=== PATIENT | female | born 1975 | race African-American/Black ===

== ENCOUNTER 2025-07-30 11:04 | Emergency (ER) | payer OTHER, SELFPAY ==
[2025-07-30 11:18] VITALS: BP 144/60; PULSE 96; RESP 14; TEMP 36.1; O2SAT 99; BMI 28.1
--- NOTE | 2025-07-30 11:41 | ED.HA ---
HPI - Headache <Rod Orourke PA-C - Last Filed: 07/30/25 14:15> General Chief Complaint: Headache Stated Complaint[place] Time Seen by Provider: 07/30/25 11:40 Mode of arrival: Ambulatory History of Present Illness HPI Narrative: This is a 50-year-old female presenting to the emergency department due to a week history of myalgias as well as nausea. She reports as of 3 days ago she had a severe headache that woke her up from sleep. Also has a history of vertigo. Denies any chest pain, shortness of breath, abdominal pain. States she was ?felt hot? but denies any recorded fevers. PCP saw her in his requesting a CT scan of the head due to the headache. Related Data Allergies Allergy/AdvReac Type Severity Reaction Status Date / Time Penicillins Allergy Unknown Verified 07/30/25 11:18 Sulfa (Sulfonamide Allergy Unknown Verified 07/30/25 11:18 Antibiotics) Review of Systems <NOREEN Morrow Last Filed: 07/30/25 14:15> Review of Systems Narrative: GENERAL: Denies chills, fatigue, malaise, fever, sweats. HEENT: Reports headache Denies sinus pain, ear pain, sore throat, difficulty swallowing, dizziness. RESPIRATORY: Denies dyspnea, cough, wheezing, hemoptysis, sputum. CARDIOVASCULAR: Denies chest pain, palpitations, orthopnea, edema, GASTROINTESTINAL: Reports nausea, denies vomiting, abdominal pain, diarrhea, constipation, melena. : Denies dysuria, frequency, incontinence, hematuria, urinary retention. MUSCULOSKELETAL: denies weakness, joint pain, or bony pain SKIN: Denies rash, skin lesions, or other NEUROLOGIC: Denies weakness, headache, numbness, change in speech, confusion, seizures, incoordination. PSYCHIATRIC: No concerning psychosocial issues. 12 point review of systems is negative except for those stated above Patient History <NOREEN Morrow Last Filed: 07/30/25 14:15> Social History Smoking Status: Unknown if ever smoked Smoking Status: Unknown if ever smoked Exam <NOREEN Morrow Last Filed: 07/30/25 14:15> Narrative Exam Narrative: GENERAL: Well-developed patient, in mild distress. HEAD: Atraumatic. Normocephalic. EYES: Pupils equal round and reactive. Extraocular motions intact. No scleral icterus. No injection or drainage. ENT: Nose without bleeding, purulent drainage. Throat without erythema, tonsillar hypertrophy or exudate. Airway patent. NECK: Trachea midline. Non tender EXTREMITIES: No edema or joint tenderness. NEURO: AOx3. Cranial nerves 2-12 intact SKIN: No rash or erythema of visible areas Initial Vital Signs Initial Vital Signs: Vital Signs Temperature 97.0 F L 07/30/25 11:18 Pulse Rate 96 H 07/30/25 11:18 Respiratory Rate 14 07/30/25 11:18 Blood Pressure 144/60 H 07/30/25 11:18 Pulse Oximetry 99 07/30/25 11:18 Oxygen Delivery Method Room Air 07/30/25 11:18 <Zhao Chandra MD - Last Filed: 07/30/25 15:02> Initial Vital Signs Initial Vital Signs: Vital Signs Temperature 97.0 F L 07/30/25 11:18 Pulse Rate 96 H 07/30/25 11:18 Respiratory Rate 14 07/30/25 11:18 Blood Pressure 144/60 H 07/30/25 11:18 Pulse Oximetry 99 07/30/25 11:18 Oxygen Delivery Method Room Air 07/30/25 11:18 Course <Rod Orourke PA-C - Last Filed: 07/30/25 14:15> Orders Ordered: ED Orders 07/30/25 11:51 CT head/brain wo con Stat 07/30/25 11:52 Covid-19 + FLU A/B + RSV - PCR Stat 07/30/25 12:50 CXR [XR chest 2V] Stat EKG-12 Lead Stat 07/30/25 12:59 Trop I [Troponin I] Stat Vital Signs Vital signs: Vital Signs - 8 hr 07/30/25 11:18 07/30/25 12:46 Temperature 97.0 F L 98 F Pulse Rate 96 H 96 H Respiratory Rate 14 12 Blood Pressure 144/60 H 129/58 L Pulse Oximetry 99 97 Oxygen Delivery Method Room Air Room Air <Zhao Chandra MD - Last Filed: 07/30/25 15:02> Orders Ordered: ED Orders 07/30/25 11:51 CT head/brain wo con Stat 07/30/25 11:52 Covid-19 + FLU A/B + RSV - PCR Stat 07/30/25 12:50 CXR [XR chest 2V] Stat EKG-12 Lead Stat 07/30/25 12:59 Trop I [Troponin I] Stat Vital Signs Vital signs: Vital Signs - 8 hr 07/30/25 11:18 07/30/25 12:46 Temperature 97.0 F L 98 F Pulse Rate 96 H 96 H Respiratory Rate 14 12 Blood Pressure 144/60 H 129/58 L Pulse Oximetry 99 97 Oxygen Delivery Method Room Air Room Air MDM - Headache <Rod Orourke PA-C - Last Filed: 07/30/25 14:15> Lab Data Labs: Lab Results 07/30/25 07/30/25 Range/Units 11:52 12:59 Troponin I < 0.012 (0.01-0.034) ng/mL SARS-CoV-2 (PCR) Negative (Negative) Influenza A (RT-PCR) Flu a negative (NEGATIVE) Influenza B (RT-PCR) Flu b negative (NEGATIVE) RSV (PCR) Negative (Negative) Imaging Data Chest x-ray: Radiologist's Impression: [address] [address] XRay Report Signed Patient: Charo Ford MR#: [id number] : 1975 Acct:[id number] Age/Sex: 50 / F Date of Service: 07/30/25 Loc: Accession Number: [id number] Procedure: XR chest 2V Ordering Provider: Rod Orourke PA-C PROCEDURE: XR CHEST 2V INDICATIONS: CP TECHNIQUE: 2 views of the chest were acquired. COMPARISON: None. FINDINGS: Surgical changes and devices: None. Lungs and pleura: Lungs are clear. No pleural effusions or pneumothorax. Mediastinum: Mediastinal contours are normal. Heart size is normal. Bones and chest wall: No suspicious bony abnormalities. Soft tissues appear unremarkable. IMPRESSION: No acute cardiopulmonary abnormality is seen. Dictated by: Bin Sepulveda M.D. on 07/30/2025 at 13:10 Approved by: Bin Sepulveda M.D. on 07/30/2025 at 13:10 CT scan - head: Radiologist's Impression: [address] [address] [address] Scan Report Signed Patient: Charo Ford MR#: [id number] : 1975 Acct:[id number] Age/Sex: 50 / F Date of Service: 07/30/25 Loc: ED Accession Number: [id number] Procedure: CT head/brain wo con Ordering Provider: Rod Orourke PA-C PROCEDURE: CT HEAD/BRAIN WO CON INDICATIONS: Severe GALLEGOS TECHNIQUE: Noncontrast 4.5 mm thick angled axial sections acquired from the foramen magnum to the vertex, with coronal and sagittal reformats. For radiation dose reduction, the following was used: automated exposure control, adjustment of mA and/or kV according to patient size. COMPARISON: None. FINDINGS: Image quality: Diagnostic. CSF spaces: Basal cisterns are patent. No extra-axial fluid collections. Ventricles are normal in size and shape. Brain: No midline shift. No intracranial mass effect or hemorrhage. Forrest-white matter interface is normal. Skull and face: Calvarium and visualized facial bones are intact, without suspicious lesions. Sinuses: Visualized sinuses and mastoids are clear. IMPRESSION: No acute intracranial pathology. Dictated by: Bin Sepulveda M.D. on 07/30/2025 at 12:06 Approved by: Bin Sepulveda M.D. on 07/30/2025 at 12:11 ECG Data Interpretation: 1321: EKG shows normal sinus rhythm at 90 beats per minute. No ST elevation or T-wave abnormalities MDM Narrative Medical decision making narrative: ED course: This is a 50-year-old female presenting to the emergency department due suspected viral URI. Patient was PCP requested a CT scan of the head due to headache which was negative. Cardiac workup ordered due to possible atypical presentation of STEMI/NSTEMI but it was negative. COVID flu RSV negative. Recommended supportive care. CC: Myalgias, headache Complicating co-morbidities: Hyperlipidemia Data collected from: Previous notes Medical records reviewed: Patient has no records available to review. Differential considered, but not limited to: Intracranial hemorrhage, ACS, viral URI Exam documented above, pertinent findings include: Cranial nerves 2-12 intact Lab Test results independently reviewed as above. Pertinent findings: Troponin within normal limits Imaging studies independently reviewed: CT head and chest x-ray unremarkable Scores Used: None MIPS Elements: None Consultations: None Treatments: None Re-evaluations: None Discussion: Discussed plan with the patient was comfortable with the plan Diagnosis: Viral illness Disposition: see below, along with detailed discharge instructions that have been reviewed with patient as well as indications for ED re-evaluation and additional outpatient follow up <Zhao Chandra MD - Last Filed: 07/30/25 15:02> Lab Data Labs: Lab Results 07/30/25 07/30/25 Range/Units 11:52 12:59 Troponin I < 0.012 (0.01-0.034) ng/mL SARS-CoV-2 (PCR) Negative (Negative) Influenza A (RT-PCR) Flu a negative (NEGATIVE) Influenza B (RT-PCR) Flu b negative (NEGATIVE) RSV (PCR) Negative (Negative) Discharge Plan Departure Patient Disposition: Home Clinical Impression: Viral illness Activity Restrictions/Additional Instructions: Thank you for coming to the [facility] Emergency Department today. As we discussed your workup today was very reassuring. The CT head no showed no evidence of a ?brain bleed?. The cardiac workup showed no evidence of a heart attack. I suspect you are experiencing a viral illness which should improve over the next were work week or so with plenty of rest and fluids. Please return to the emergency department if you develop any slurred speech, weakness, chest pain, or any other concerning signs or symptoms. I hope you feel better soon. Please follow up with your primary care provider within a week if your symptoms continue. If you do not have a primary care provider please contact the [facility] Resource line at [phone]. They will ask some questions about your medical history and help you get set up with a provider in the community. Referrals: ProviderHussain [Primary Care Provider, Family Practice] Stand Alone Forms: Patient Portal/API, Work Release Note ED Sign-out <Zhao Chandra MD - Last Filed: 07/30/25 15:02> Cosign ED Attending Cosignature Attestation: I was immediately available in the department for consultation. ?This documentation has been reviewed and I agree with assessment and plan. Supervised by Zhao Chandra MD
--- NOTE | 2025-07-30 11:51 | DI.CT.S_ITS ---
PROCEDURE: CT HEAD/BRAIN WO CON INDICATIONS: Severe GALLEGOS TECHNIQUE: Noncontrast 4.5 mm thick angled axial sections acquired from the foramen magnum to the vertex, with coronal and sagittal reformats. For radiation dose reduction, the following was used: automated exposure control, adjustment of mA and/or kV according to patient size. COMPARISON: None. FINDINGS: Image quality: Diagnostic. CSF spaces: Basal cisterns are patent. No extra-axial fluid collections. Ventricles are normal in size and shape. Brain: No midline shift. No intracranial mass effect or hemorrhage. Forrest- white matter interface is normal. Skull and face: Calvarium and visualized facial bones are intact, without suspicious lesions. Sinuses: Visualized sinuses and mastoids are clear. IMPRESSION: No acute intracranial pathology. Dictated by: Bin Sepulveda M.D. on 07/30/2025 at 12:06 Approved by: Bin Sepulveda M.D. on 07/30/2025 at 12:11
[2025-07-30 12:38] LABS: COVID-19 CEPHEID 4-PLEX PCR Negative (Negative); Influenza A - CEPHEID Flu A NEGATIVE (NEGATIVE); Influenza B - CEPHEID Flu B NEGATIVE (NEGATIVE)
[2025-07-30 12:46] VITALS: BP 129/58; PULSE 96; RESP 12; TEMP 36.6; O2SAT 97
--- NOTE | 2025-07-30 12:50 | DI.RAD.S_ITS ---
PROCEDURE: XR CHEST 2V INDICATIONS: CP TECHNIQUE: 2 views of the chest were acquired. COMPARISON: None. FINDINGS: Surgical changes and devices: None. Lungs and pleura: Lungs are clear. No pleural effusions or pneumothorax. Mediastinum: Mediastinal contours are normal. Heart size is normal. Bones and chest wall: No suspicious bony abnormalities. Soft tissues appear unremarkable. IMPRESSION: No acute cardiopulmonary abnormality is seen. Dictated by: Bin Sepulveda M.D. on 07/30/2025 at 13:10 Approved by: Bin Sepulveda M.D. on 07/30/2025 at 13:10
--- NOTE | 2025-07-30 13:21 | EKG_ITS ---
[facility] [address] [place] [address] Test Date: 2025-07-30 Pat Name: Charo Ford Department: [facility] Room: Gender: Female [employer]: : 1975 Requested By: Order Number: [id number] Reading MD: Rod Yates MD Measurements Intervals [place] Rate: 90 P: 59 GA: 160 QRS: 53 QRSD: 90 T: 38 QT: 384 QTc: 469 Interpretive Statements Normal sinus rhythm Electronically Signed On 08-09-2025 9:00:27 PST by Rod Yates MD
[2025-07-30 13:41] LABS: Troponin I < 0.012 ng/mL (0.01-0.034)
== END 2025-07-30 14:22 | disposition home or self-care (01) ==
PROVIDERS: Emergency Provider Physician Assistant Medical
DX: B34.9 Viral infection, unspecified (principal); R07.9 Chest pain, unspecified; R51.9 Headache, unspecified
CPT/HCPCS: 36415; 70450; 71046; 84484; 87637; 93005; 93010; 99284

== ENCOUNTER 2025-08-14 14:33 | Emergency (ER) | payer OTHER, SELFPAY ==
[2025-08-14] VITALS (9 sets, daily range): BP systolic 121–150; BP diastolic 55–98; PULSE 59–99; RESP 18–24; TEMP 36.8–36.9; O2SAT 95–98; BMI 28.1
--- NOTE | 2025-08-14 15:14 | ED.PEDGIA ---
HPI - Pediatric GI General Chief Complaint: Abdominal Pain Stated Complaint: nausea, shakey, tightness in belly Time Seen by Provider: 08/14/25 15:13 Source: patient Mode of arrival: Ambulatory Related Data Allergies Allergy/AdvReac Type Severity Reaction Status Date / Time Penicillins Allergy Unknown Verified 07/30/25 11:18 Sulfa (Sulfonamide Allergy Unknown Verified 07/30/25 11:18 Antibiotics) Patient History Smoking Status: Never smoker Pediatric Exam Initial Vital Signs Initial Vital Signs: Vital Signs Temperature 98.4 F 08/14/25 14:49 Pulse Rate 59 L 08/14/25 14:49 Respiratory Rate 18 08/14/25 14:49 Blood Pressure 150/98 H 08/14/25 14:49 Pulse Oximetry 98 08/14/25 14:49 Oxygen Delivery Method Room Air 08/14/25 14:49 General Limitations: no limitations Course Vital Signs Vital signs: Vital Signs - 8 hr 08/14/25 14:49 Temperature 98.4 F Pulse Rate 59 L Respiratory Rate 18 Blood Pressure 150/98 H Pulse Oximetry 98 Oxygen Delivery Method Room Air Discharge Plan Departure Referrals: ProviderHussain [Primary Care Provider, Family Practice]
--- NOTE | 2025-08-14 16:02 | ED.ABDPAIN ---
HPI - Abdominal Pain General Chief Complaint: Abdominal Pain Stated Complaint: nausea, shakey, tightness in belly Time Seen by Provider: 08/14/25 15:13 Source: patient Mode of arrival: Ambulatory History of Present Illness HPI narrative: 50-year-old female no known past medical history comes into the ED from home for evaluation of multiple complaints, patient stating she has been having some headaches nausea generalized weakness as well as some darker urine vomiting also complaining of left-sided abdominal and flank pain, states that she is currently on antibiotics for a right ear infection, she states that she is also having a stiff neck but does not have any actual meningeal signs on my exam. She denies any other symptoms such as visual disturbance chest pain shortness of breath fever chills or any other GI/ symptoms at this time. to note patient states that her headache and her neck pain has significantly improved after starting her antibiotic cefdinir for her ear infection, she states that she is really only here for her abdominal pain. She states that she has had a history of a tummy tuck and appendectomy. Related Data Allergies Allergy/AdvReac Type Severity Reaction Status Date / Time Penicillins Allergy Unknown Verified 07/30/25 11:18 Sulfa (Sulfonamide Allergy Unknown Verified 07/30/25 11:18 Antibiotics) Review of Systems Review of Systems Narrative: General: Denies fever generalized weakness, denies, chills, weight loss HEENT: Positive headache, denieseye drainage, eye irritation, head trauma, sore throat, voice change Cardiovascular: Denies any chest pain, palpitations, tachycardia Respiratory: Denies any shortness of breath, cough, wheeze, stridor GI/: positive abdominal pain, nausea, vomiting, denies diarrhea, bright red blood per rectum, melanotic stools, urinary frequency, urinary retention, dysuria, hematuria MSK: Denies any joint pain, muscle pains, swelling Skin: Denies any rashes, lesions, discoloration Neuro: Denies any headache, lightheadedness, dizziness, fainting, weakness Psych: Denies SI/HI Patient History Social History Smoking Status: Never smoker Smoking Status: Never smoker Exam Narrative Exam Narrative: General: Cooperative, well-developed, not in acute distress HEENT: Normocephalic, atraumatic, PERRLA, normal sclera, eyelids normal Neck: Active full range of motion, atraumatic Chest: Normal to inspection, negative crepitus, no overlying erythema ecchymosis Respiratory: Normal respiratory effort, not in acute respiratory distress, clear to auscultation bilaterally negative cough, wheeze, tachypnea, rhonchi, rales Cardiology: Regular rate rhythm negative gallop, murmur, rubs GI/: No tenderness to palpation, soft, non rigid, normal to inspection, exam deferred MSK: Full active range of motion in all 4 extremities, atraumatic, no tenderness to palpation of any bony prominences Skin: No rashes or lesions noted Neuro: Alert awake oriented x3, moves all 4 extremities spontaneously, cranial nerves intact, able to answer all questions appropriately follows commands appropriately Psych: Cooperative, negative suicidal or homicidal ideations Initial Vital Signs Initial Vital Signs: Vital Signs Temperature 98.4 F 08/14/25 14:49 Pulse Rate 59 L 08/14/25 14:49 Respiratory Rate 18 08/14/25 14:49 Blood Pressure 150/98 H 08/14/25 14:49 Pulse Oximetry 98 08/14/25 14:49 Oxygen Delivery Method Room Air 08/14/25 14:49 Course Orders Ordered: ED Orders 08/14/25 16:05 Complete Blood Count AUTO DIFF Stat Comprehensive Metabolic Panel Stat Lipase Stat MAG [Magnesium] Stat 08/14/25 16:15 CT abdomen pelvis w con Stat 08/14/25 16:40 Ictotest Urine Stat Urine Culture Stat Urine Microscopic Stat Discontinued Medications Sodium Chloride (Normal Saline 0.9%) 1,000 mls @ 1,000 mls/hr IV BOLUS ONE Stop: 08/14/25 17:14 Last Infusion: 08/14/25 18:03 Dose: Infused Documented By: Admin: 08/14/25 16:21 Dose: 1,000 mls/hr Documented By: EB Morphine Sulfate (Morphine 4 Mg/Ml Inj) 4 mg IV NOW ONE Stop: 08/14/25 16:16 Last Admin: 08/14/25 16:23 Dose: 4 mg Documented By: EB Ondansetron HCl (Ondansetron 4 Mg/2 Ml Inj) 4 mg IV NOW ONE Stop: 08/14/25 16:16 Last Admin: 08/14/25 16:23 Dose: 4 mg Documented By: EB Vital Signs Vital signs: Vital Signs - 8 hr 08/14/25 14:49 08/14/25 16:10 08/14/25 16:17 Temperature 98.4 F 98.2 F Pulse Rate 59 L 92 H 98 H Respiratory Rate 18 22 Blood Pressure 150/98 H 123/59 L Pulse Oximetry 98 97 95 Oxygen Delivery Method Room Air Room Air 08/14/25 16:30 08/14/25 16:32 08/14/25 16:32 Temperature Pulse Rate 99 H 93 H Respiratory Rate 22 24 Blood Pressure 121/65 Pulse Oximetry 98 98 Oxygen Delivery Method 08/14/25 17:00 Temperature Pulse Rate 95 H Respiratory Rate Blood Pressure Pulse Oximetry 97 Oxygen Delivery Method MDM - Abdominal Pain Lab Data 08/14/25 16:05 08/14/25 16:05 Labs: Lab Results 08/14/25 08/14/25 Range/Units 16:05 16:40 WBC 5.1 (4.5-11.0) X10^3/uL RBC 4.71 (4.0-5.2) X10^6/uL Hgb 13.4 (12.0-16.0) g/dL Hct 40.9 (36-46) % MCV 86.8 (80-100) fL MCH 28.5 (26-34) PG MCHC 32.8 (30-36) % RDW 13.1 (11.6-14.8) % Plt Count 316 (150-400) X10^3/uL Neut % (Auto) 53.3 (50-75) % Lymph % (Auto) 29.0 (25-40) % [place] % (Auto) 16.7 H (3-14) % Eos % (Auto) 0.5 L (2-4) % Baso % (Auto) 0.5 (0-2) % Neut # (Auto) 2700 (1200-5645) /uL Lymph # (Auto) 1500 (9249-4000) /uL [place] # (Auto) 800 (0-900) /uL Eos # (Auto) 0 (0-450) /uL Baso # (Auto) 0 (0-100) /uL Sodium 138 (137-145) mmol/L Potassium 4.5 (3.4-5.1) mmol/L Chloride 106 (98-107) mmol/L Carbon Dioxide 23 (22-32) mmol/L BUN 22 H (7-17) mg/dL Creatinine 0.53 (0.52-1.04) mg/dL Estimated GFR > 60 (>60) mL/min BUN/Creatinine Ratio 41.5 H (6-22) Glucose 115 H (70-99) mg/dL Calcium 10.3 H (8.4-10.2) mg/dL Magnesium 1.9 (1.6-2.3) mg/dL Total Bilirubin 0.7 (0.2-1.3) mg/dL AST 70 H (14-36) IU/L ALT 125 H (<35) IU/L Alkaline Phosphatase 71 (38-126) U/L Total Protein 7.3 (6.3-8.2) g/dL Albumin 4.1 (3.5-5.0) g/dL Globulin 3.2 (1.7-4.1) g/dL Albumin/Globulin Ratio 1.3 (1.0-2.8) Lipase 237 (23-300) U/L Ur Bilirubin Confirm Negative (Negative) Urine RBC 0-1/hpf (0-5/HPF) Urine WBC 0-1/hpf (0-5/HPF) Ur Squamous Epith Cells 1-5 /hpf (0-5/HPF) Urine Bacteria Occasional (0-1) (None) Urine Mucus 1+ H (Negative) Vol Urine Centrifuged 10ml (spun) Point of care testing: Urine Dip Bedside Urine Glucose Negative Bedside Urine Bilirubin + 1 Bedside Urine Ketone - Negative Urine Specific [place] 1.025 Bedside Urine Occult Blood +/- Bedside Urine pH 6.0 Bedside Urine Protein + 30 Bedside Urine Urobilinogen - Negative Bedside Urine Nitrite - Negative Bedside Urine Leukocytes - Negative Esterase MDM Narrative Medical decision making narrative: 50-year-old female with a past medical history of hyperlipidemia presenting from home for evaluation of abdominal pain, states it started to her left flank and now is to her left lower quadrant, describes as a pressure nothing making it better or worse started a proximally 1 week ago. To note she was also having some headaches neck pain states that she was seen at outside hospital for this this has since improved, she also states that she is currently on day 7 of 10 of cefdinir for right ear infection, she is not having any issues with this. She states however she is still having some left abdominal pain which is what brought her in. On my exam nontender non peritoneal nature. Patient had lab work imaging urinalysis performed here in the emergency department. CT scan without any acute findings, lab work unremarkable, no leukocytosis no electrolyte abnormality, urinalysis not consistent with acute urinary tract infection, I believe symptoms are most likely secondary to possible antibiotics, informed patient to take the medication with probiotic, my exam she is still without any abdominal tenderness no peritoneal signs she is well-appearing nontoxic, she will be discharged home with outpatient follow up and strict return precautions she verbalized understanding of this and agrees to being discharged home with outpatient follow up Discharge Plan Departure Patient Disposition: Home Clinical Impression: Abdominal pain Activity Restrictions/Additional Instructions: Please follow up with the primary care doctor Please continue taking your medications that was prescribed to you Please read the discharge instructions sheet carefully and bring all papers to all doctor follow-up visits, as it may contain information that your doctor may want to see. Disease processes change and evolve, if your symptoms worsen or if you develop any new symptoms that are concerning to you please return for evaluation. Your evaluation today does not show any evidence of any life-threatening/serious illnesses requiring admission to the hospital or surgery. Please follow-up with your doctor for re-evaluation in approximately 1 day. Seek immediate medical attention for any worrisome symptoms. *If you do not have a primary care provider please contact the [facility] Resource line at [phone]. They will ask some questions about your medical history and help get you set up with a doctor in the community. Referrals: Provider,Hussain JARQUIN [Primary Care Provider, Family Practice] Stand Alone Forms: Patient Portal/API
--- NOTE | 2025-08-14 16:12 | PC.NURSE ---
Pt reports that she has had persistent abdominal pain for a few weeks without resolution. Per pt she has had nausea/vomiting as well as slternating diarrhea and constipation with her abdominal pain. Pt was seen in [place] ER for this pain but nothing was found per pt. She later was treated for an inner ear infection with antibiotics when seen at another facility. Pt reports she was able to keep down a banana today but that she has felt persistently weak and had to sit down often with her abdominal pain and other symptoms causing fatigue. Pt also reports new pain in neck and back that she reports has made moving around difficult for her.
--- NOTE | 2025-08-14 16:15 | DI.CT.S_ITS ---
PROCEDURE: CT ABDOMEN PELVIS W CON INDICATIONS: FLU SYMPTOMS FOR A WEEK. TECHNIQUE: After the administration of intravenous contrast, axial sections acquired from the lung bases to the pubic symphysis. Coronal and sagittal reformats were performed. For radiation dose reduction, the following was used: automated exposure control, adjustment of mA and/or kV according to patient size. COMPARISON: None. FINDINGS: Image quality: Diagnostic. Lower Chest: No significant findings. ABDOMEN: Liver: No solid mass. Minimal steatosis. Gallbladder: No radiopaque gallstones or wall thickening. Biliary ducts: No biliary dilation. Pancreas: No ductal dilation. Spleen: Size is within normal limits. Adrenal Glands: No adrenal nodules. Kidneys and Ureters: No hydronephrosis. 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 Stomach and Bowel: Normal colonic caliber, without significant wall thickening. Mild scattered colonic stool without obstruction. Peritoneum: No abnormal intraperitoneal fluid. No free air. Ventral Wall: No significant ventral hernia. Abdominal Nodes: No retroperitoneal or mesenteric adenopathy by size criteria. Vessels: Aorta and inferior vena cava are normal in size. PELVIS: Pelvic Organs: Unremarkable. Bladder: No bladder wall thickening, accounting for underdistention. Pelvic Nodes: No enlarged lymph nodes. Miscellaneous: No inguinal hernias are seen. Bones: No aggressive osseous abnormality. IMPRESSION: No acute intra-abdominal or pelvic process. Mild scattered stool. Dictated by: Mary Pino M.D. on 08/14/2025 at 17:17 Approved by: Mary Pino M.D. on 08/14/2025 at 17:21
[2025-08-14] MEDS: SODIUM CHLORIDE 0.9% 1,000 ML 1000 ML IV (16:21)
[2025-08-14] MEDS: ONDANSETRON 4 MG/2 ML INJ IV (16:23)
[2025-08-14] MEDS: MORPHINE 4 MG/ML INJ IV (16:23)
[2025-08-14 16:26] LABS: Add Manual Diff / Slide Review NO; Hematocrit 40.9 % (36-46); Hemoglobin 13.4 g/dL (12.0-16.0); Lymphocytes Absolute Auto 1500 /uL (1100-4500); Mean Corpuscular HGB Conc 32.8 % (30-36); Mean Corpuscular Hemoglobin 28.5 PG (26-34); Mean Corpuscular Volume 86.8 fL (80-100); Platelet Count 316 X10^3/uL (150-400)
[2025-08-14 16:31] LABS: Alanine Aminotransferase 125 IU/L (<35); Albumin 4.1 g/dL (3.5-5.0); Albumin Globulin Ratio 1.3 (1.0-2.8); Alkaline Phosphatase 71 U/L (38-126); Blood Urea Nitrogen 22 mg/dL (7-17); Calcium 10.3 mg/dL (8.4-10.2); Carbon Dioxide 23 mmol/L (22-32); Chloride 106 mmol/L (98-107); Estimated Glomerular Filt Rate > 60 mL/min (>60); Globulin 3.2 g/dL (1.7-4.1); Glucose 115 mg/dL (70-99); HEMOLYSIS < 15 (0-50); Lipase 237 U/L (23-300); Magnesium 1.9 mg/dL (1.6-2.3); Potassium 4.5 mmol/L (3.4-5.1); Sodium 138 mmol/L (137-145); Total Protein 7.3 g/dL (6.3-8.2)
[2025-08-14 16:57] LABS: Ictotest Urine Negative (Negative)
== END 2025-08-14 18:21 | disposition home or self-care (01) ==
PROVIDERS: Emergency Provider Student in an Organized Health Care Education/Training Program
DX: R10.32 Left lower quadrant pain (principal); R51.9 Headache, unspecified; R53.1 Weakness; M54.2 Cervicalgia
CPT/HCPCS: 74177; 80053; 81003; 81015; 83690; 83735; 85025; 87086; 96361; 96374; 96375; 99283; 99284; J2272; J2405; J7030; Q9967

== ENCOUNTER → 2025-09-28 16:22 | Outpatient (CLI) | payer OTHER, SELFPAY ==
--- NOTE | 2025-09-28 | DI.MRI.S_ITS ---
PROCEDURE: MR AB PANCREATIC/MRCP PROTOCOL INDICATIONS: Enlarged pancreatic head w/o discrete mass on ct TECHNIQUE: Coronal HASTE through the abdomen, axial 2-D FLASH in- and [id number], and breath-hold T2 FSE with fat saturation through the biliary system and pancreas. Oblique coronal and axial thin-slice HASTE, radial thick-slab HASTE centered on the extrahepatic bile ducts. COMPARISON: [facility], CT, CT ABDOMEN PELVIS W CON, 08/14/2025, 16:42. FINDINGS: Image quality: Diagnostic. Lung bases: Unremarkable. Liver: No solid mass. Question mild hepatic steatosis. Gallbladder: No gallstones or wall thickening. Biliary ducts: No biliary dilation. CBD measures 0.5 cm. Pancreas: No pancreatic ductal dilatation. No peripancreatic fluid collection. No mass or cystic lesion. Enhances uniformly. Uniform intrinsic T1 hyperintense signal. No restricted diffusion. Spleen: Size is within normal limits. Adrenal Glands: No adrenal nodules. Kidneys and Ureters: No hydronephrosis. Variant lie of the left kidney. No solid mass. No complex renal cystic lesion which requires follow up. Stomach and Bowel: Normal colonic caliber, without significant wall thickening. Peritoneum: No abnormal intraperitoneal fluid. Ventral Wall: No hernia. Abdominal Nodes: No retroperitoneal or mesenteric adenopathy by size criteria. Vessels: Aorta and inferior vena cava are normal in size. Portal vein is patent. Bones: No aggressive osseous abnormality. Mild scoliosis. IMPRESSION: 1. No mass or cystic lesion. No free fluid. 2. No biliary or pancreatic ductal dilatation. No gallstones identified. Dictated by: Colten Sauceda M.D. on 09/29/2025 at 8:40 Approved by: Colten Sauceda M.D. on 09/29/2025 at 8:51
== END ==
PROVIDERS: Referring Provider Preventive Medicine Aerospace Medicine; Visit Provider Preventive Medicine Aerospace Medicine
DX: R93.89 Abnormal findings on diagnostic imaging of other specified body structures (principal)
CPT/HCPCS: 74183; A9579